=== PATIENT | male | born 1965 | race African-American/Black ===

== ENCOUNTER 2022-07-30 03:57 | Emergency (ER) | payer MEDICAID ==
[~2022-07-30] VITALS: Ht 185.4 cm; Wt 79.0 kg
[2022-07-30 03:59] VITALS: BP 148/104
[2022-07-30] MEDS ORDERED: NAPR-681 MT (05:59)
== END 2022-07-30 06:10 ==
LOC: ER 03:57
DX: S50.11XA Contusion of right forearm, initial encounter (principal); X58.XXXA Exposure to other specified factors, initial encounter; Y93.89 Activity, other specified; Y92.89 Other specified places as the place of occurrence of the external cause; Y99.8 Other external cause status
CPT/HCPCS: 73030; 73090; 99284